=== PATIENT | male | born 1945 | race Caucasian/White ===

== ENCOUNTER 2020-09-01 14:58 | Emergency (ER) | payer MEDICARE ==
[~2020-09-01] VITALS: Ht 172.7 cm; Wt 90.0 kg
[2020-09-01] MEDS ORDERED: IPRATRPIUM/ALBUTEROL 0.5/2.5MG 3 ML NEBU. ONE (15:14)
[2020-09-01] MEDS ORDERED: methylPREDNISolone SOD SUCC PF 125 MG/2 ML VIAL. IV ONE (15:15)
[2020-09-01] MEDS ORDERED: ADENOSINE 6 MG/2 ML VIAL IV ONE ×2 (15:15→15:30)
[2020-09-01] MEDS ORDERED: IPRATROPIUM BROMIDE 0.5 MG/2.5 ML NEBU. NEB ONE (15:15)
[2020-09-01 15:27] LABS: BASO # 0.1 x10^3/uL (0.0-0.2); BASO % 1 % (0-3); EOS # 0.1 x10^3/uL (0.0-0.7); EOS % 1 % (0-3); HEMATOCRIT 39.9 % (39.0-53.0); HEMOGLOBIN 13.3 g/dL (13.0-17.5); LYMPH # 2.9 x10^3/uL (1.0-4.8); LYMPH % 13 % (24-48); MEAN CORPUSCULAR HEMOGLOBIN 30 pg (25-35); MEAN CORPUSCULAR HGB CONC 33 g/dL (31-37); MEAN CORPUSCULAR VOLUME 91 fL (79-100); MONO # 2.9 x10^3/uL (0.0-1.1); MONO % 13 % (0-9); NEUT # 15.6 x10^3uL (1.8-7.7); NEUT % 72 % (31-73); PLATELET COUNT 455 x10^3/uL (140-400); RED CELL DISTRIBUTION WIDTH 13.1 % (11.5-14.5); WHITE BLOOD COUNT 21.5 x10^3/uL (4.0-11.0)
--- NOTE | 2020-09-01 15:28 | PHYS DOC ---
Past History Past Medical History: Other (Subarachnoid hemorrhage, neurosyphilis) Past Surgical History: Other (BILATERAL ENDARTERECTOMY) Adult General Chief Complaint Chief Complaint: ALTERED MENTAL STATUS HPI HPI Patient is a 75-year-old male who presents via EMS for shortness of breath. Patient with prior history of smoking was seen by his primary care physician early last week and diagnosed with pneumonia after undergoing chest x-ray analysis. He has been at home utilizing inhaler treatments, steroids and Levaquin. Per who called ahead prior to ER arrival, patient was at home and had witnessed seizure-like activity that lasted less than 3 minutes in duration. Patient had generalized tonic-clonic shaking and urinated himself, he was unresponsive throughout total duration of episode. On arrival to scene by EMS, patient was postictal and hypoxic with O2 saturation 68% on room air. Patient typically does not wear oxygen at home, has history of smoking and was recently prescribed an inhaler, denies any history of COPD, no prior intubations or hospitalizations for respiratory issues. Nonetheless, IV access was obtained and patient was urgently transported to our facility for evaluation. Limited history obtainable from patient due to acute respiratory distress on arrival, denies any fever, unable to recall recent events and history of present illness, cannot recall that he is being treated for pneumonia currently Review of Systems Review of Systems Fourteen body systems of review of systems have been reviewed. See HPI for pertinent positives and negative responses, other quintanilla all other systems are negative, non-pertinent or non-contributory Current Medications Current Medications Current Medications Medications (Trade) Dose Ordered Sig/Sanchez Start Time Stop Time Status Last Admin Dose Admin Adenosine (Adenocard) 6 mg STK-MED ONCE 09/01/20 15:15 09/01/20 15:15 DC Albuterol/ Ipratropium (Duoneb) 3 ml STK-MED ONCE 09/01/20 15:14 09/01/20 15:14 DC Ipratropium [place] (Atrovent) 0.5 mg 1X ONCE 09/01/20 15:15 09/01/20 15:16 UNV Methylprednisolone Sodium Succinate (SOLU-Medrol 125MG VIAL) 125 mg 1X ONCE 09/01/20 15:15 09/01/20 15:16 UNV Allergies Allergies Allergies Coded Allergies Type Severity Reaction Last Updated Verified No Known Drug Allergies 09/01/20 No Physical Exam Physical Exam Constitutional: Well developed, well nourished, in moderate respiratory distress on arrival, toxic appearing, mouth breathing and gasping for air speaking in few word sentences only HENT: Normocephalic, atraumatic, bilateral external ears normal, oropharynx dry with poor dentition, no tongue lacerations and/or bite patiño, no oral exudates, nose normal. Eyes: PERRLA, EOMI, conjunctiva normal, no discharge. Neck: Normal range of motion, no tenderness, supple, no stridor. Cardiovascular: Tachycardic, sinus rhythm, no murmurs rubs or gallops Lungs & Thorax: Bilateral crackles and rhonchi, left greater than right, in respiratory distress, nonrebreather in place with oxygen saturations in the low 90s, accessory muscle usage noted in neck and abdomen Abdomen: Bowel sounds normal, soft and protuberant, no tenderness, no masses, no pulsatile masses. Nonsurgical abdomen, no peritoneal signs. Urinary incontinence present Skin: Cool and dry, no erythema, no rash. Back: No tenderness, no CVA tenderness. Extremities: No tenderness, no cyanosis, no clubbing, ROM intact, no edema. Neurologic: Alert and oriented X 3, cranial nerves II through XII intact, normal motor & sensory function, no focal deficits noted. Psychologic: Anxious mood and affect Current Patient Data Vital Signs Vital Signs Date Time Temp Pulse Resp B/P (MAP) Pulse Ox O2 Delivery O2 Flow Rate FiO2 09/01/20 15:10 98.2 172 26 135/63 (87) 92 NonRebreather Mask 15.0 Lab Results Laboratory Tests Test 09/01/20 15:05 09/01/20 15:10 09/01/20 15:15 White Blood Count 21.5 x10^3/uL Red Blood Count 4.40 x10^6/uL Hemoglobin 13.3 g/dL Hematocrit 39.9 % Mean Corpuscular Volume 91 fL Mean Corpuscular Hemoglobin 30 pg Mean Corpuscular Hemoglobin Concent 33 g/dL Red Cell Distribution Width 13.1 % Platelet Count 455 x10^3/uL Neutrophils (%) (Auto) 72 % Lymphocytes (%) (Auto) 13 % Monocytes (%) (Auto) 13 % Eosinophils (%) (Auto) 1 % Basophils (%) (Auto) 1 % Neutrophils # (Auto) 15.6 x10^3uL Lymphocytes # (Auto) 2.9 x10^3/uL Monocytes # (Auto) 2.9 x10^3/uL Eosinophils # (Auto) 0.1 x10^3/uL Basophils # (Auto) 0.1 x10^3/uL Segmented Neutrophils % 73 % Band Neutrophils % 3 % Lymphocytes % 12 % Monocytes % 11 % Eosinophils % 1 % Platelet Estimate Adequate Sodium Level 129 mmol/L Potassium Level 3.9 mmol/L Chloride Level 95 mmol/L Carbon Dioxide Level 19 mmol/L Anion Gap 15 Blood Urea Nitrogen 19 mg/dL Creatinine 1.6 mg/dL Estimated GFR (Cockcroft-Gault) 42.3 BUN/Creatinine Ratio 12 Glucose Level 174 mg/dL Lactic Acid Level 5.8 mmol/L Calcium Level 8.7 mg/dL Total Bilirubin 0.7 mg/dL Aspartate Amino Transf (AST/SGOT) 34 U/L Alanine Aminotransferase (ALT/SGPT) 45 U/L Alkaline Phosphatase 99 U/L Creatine Kinase 101 U/L Troponin I Quantitative 0.038 ng/mL LV-Ccq-G-Type Natriuretic Peptide 3066 pg/mL Total Protein 6.9 g/dL Albumin 2.6 g/dL Albumin/Globulin Ratio 0.6 Glucose (Fingerstick) 165 mg/dL Blood Gas pH 7.37 Blood Gas PCO2 29 mmHg Blood Gas PO2 75 mmHg Blood Gas HCO3 17 mmol/L Arterial Bld O2 Saturation (Calc) 95 % FiO2 100 % Current Medications Medications (Trade) Dose Ordered Sig/Sanchez Route PRN Reason Start Time Stop Time Status Last Admin Dose Admin Ipratropium [place] (Atrovent) 0.5 mg 1X ONCE NEB 09/01/20 15:15 09/01/20 15:41 DC Methylprednisolone Sodium Succinate (SOLU-Medrol 125MG VIAL) 125 mg 1X ONCE IV 09/01/20 15:15 09/01/20 16:28 DC Albuterol/ Ipratropium (Duoneb) 3 ml STK-MED ONCE .ROUTE 09/01/20 15:14 09/01/20 15:14 DC Adenosine (Adenocard) 6 mg STK-MED ONCE IV 09/01/20 15:15 09/01/20 15:15 DC Adenosine (Adenocard) 6 mg 1X ONCE IV 09/01/20 15:30 09/01/20 15:41 DC 09/01/20 15:22 Ondansetron HCl (Zofran) 4 mg 1X ONCE IVP 09/01/20 15:30 09/01/20 15:41 DC 09/01/20 15:24 Sodium Chloride 500 ml @ 0 mls/hr 1X ONCE IV 09/01/20 15:45 09/01/20 15:48 DC 09/01/20 15:18 Levofloxacin/ Dextrose 150 ml @ 100 mls/hr 1X ONCE IV 09/01/20 15:45 09/01/20 17:14 DC 09/01/20 16:05 Albuterol Sulfate (Ventolin Hfa Inhaler) 60 puff STK-MED ONCE .ROUTE 09/01/20 16:00 09/01/20 16:01 DC Iohexol (Omnipaque 350 Mg/ml) 100 ml 1X ONCE IV 09/01/20 16:15 09/01/20 16:31 DC 09/01/20 16:41 Dexamethasone Sodium Phosphate (Decadron) 6 mg 1X ONCE IV 09/01/20 16:30 09/01/20 16:31 DC 09/01/20 17:15 EKG EKG Initial EKG ordered and interpreted by myself at 1507 hrs. as sinus rhythm at 163 bpm, narrow QRS at 100, unremarkable intervals, no acute ischemic findings, no STEMI Repeat EKG ordered and interpreted by myself after chemical cardioversion at 1527 hrs. as sinus rhythm at 109 bpm, unremarkable intervals, no axis deviation, no acute ischemic findings, no STEMI. Significant improvement in SVT after 6 mg adenosine Radiology/Procedures Radiology/Procedures PROCEDURE: PORTABLE CHEST 1V XR CHEST 1V History: Reason: SHOB Hx: Pneumonia / Spl. Instructions: / History: Comparison: August 29, 2020 Findings: Increased multifocal ill-defined opacities and consolidations, left greater than right. Possible small left pleural effusion. Unchanged heart size. No pneumothorax. Impression: 1. Increased multifocal ill-defined opacities and consolidations, left greater than right. Findings may represent pneumonia including viral pneumonia or pulmonary edema. Electronically signed by: Jann Palacios DO (09/01/2020 3:33 PM) [facility] //////////////////////////////// PROCEDURE: CT HEAD WO CONTRAST CT HEAD/BRAIN WO History: Reason: SEIZURE, HX NEUROSYPHILIS SAH / Spl. Instructions: / History: Comparison: None. Technique: Noncontrast CT imaging was performed of the head. Exposure: One or more of the following individualized dose reduction techniques were utilized for this examination: 1. Automated exposure control 2. Adjustment of the mA and/or kV according to patient size 3. Use of iterative reconstruction technique. Chronic left basal ganglia lacunar infarcts. Findings: No intracranial hemorrhage. No mass effect. No hydrocephalus. Left frontal parietal cortical and subcortical encephalomalacia related to prior insult. Mild brain parenchymal volume loss. Imaged orbits are unremarkable. Imaged paranasal sinuses and mastoid air cells are clear. No acute calvarial fracture. Impression: 1. No acute intracranial abnormality. 2. Left frontal and parietal encephalomalacia related to prior insult. 3. Chronic appearing left basal ganglia lacunar infarcts. Electronically signed by: Jann Palacios DO (09/01/2020 5:14 PM) [facility] ///////////////////////////////////////////////////////// PROCEDURE: CT ANGIOGRAPHY CHEST CTA CHEST History: Shortness of breath. Suspected Covid Technique: CT of the chest was performed with intravenous contrast. PE protocol. Maximum intensity projection coronal and sagittal reconstructions were performed. Exposure: One or more of the following individualized dose reduction techniques were utilized for this examination: 1. Automated exposure control 2. Adjustment of the mA and/or kV according to patient size 3. Use of iterative reconstruction technique. Comparison: None Findings: Chest: No pulmonary embolism. No aortic aneurysm or dissection. Mild atherosclerotic plaque within the aorta. Coronary artery calcifications. Mildly enlarged mediastinal and hilar lymph nodes. Diffuse septal thickening. Diffuse alveolar opacities bilaterally. Tiny left pleural effusion. No pneumothorax. Upper abdomen: The imaged upper abdomen is unremarkable. Bones: No pathologic osseous lesions. Impression: 1. No pulmonary embolism. 2. Diffuse septal thickening and alveolar opacities, may represent pulmonary edema or infection including viral pneumonia. Recommend short-term follow-up after treatment. 3. Mild mediastinal and hilar lymphadenopathy, likely reactive. Electronically signed by: Jann Palacios DO (09/01/2020 5:25 PM) [facility] Heart Score C/O Chest Pain: No HEART Score for Chest Pain: HEART Score for Chest Pain Response (Comments) Value History Moderately Suspicious 1 ECG Nonspecific Repolarizatio 1 Age > 65 2 Risk Factors >3 Risk Factors or Hx CAD 2 Troponin < Normal Limit 0 Total 6 Risk Factors: Risk Factors: DM, Current or recent (<one month) smoker, HTN, HLP, family history of CAD, obesity. Risk Scores: Risk Factors: DM, Current or recent (<one month) smoker, HTN, HLP, family history of CAD, obesity. Course & Med Decision Making Course & Med Decision Making Patient presenting to ER hypoxic on 15 L nonrebreather, airway patent speaking in few word sentences only, in acute respiratory distress, vitals obtained and patient in upper 80s with sustained SVT per monitor and tachypnea X2 peripheral IVs obtained. EKG obtained confirming SVT. Vagal maneuvers attempted without relief of symptoms, decision was made to administer 6 mg adenosine with significant improvement in patient's heart rate and subsequent tachypnea and hypoxia Repeat EKG performed showing improved sinus tachycardia with new rate ranging from 90s to 110s Comprehensive ER work-up obtained concerning for bilateral pneumonia which is likely cause of patient's presenting symptoms. There is high concern for Covid, patient tested and now a PUI. Continued IV Levaquin and started 6 mg dexamethasone Patient likely suffered from seizure given urinary incontinence. Also suffering from SVT, suspect underlying sepsis as cause of this? This resolved to adequate ranges after chemical cardioversion Patient mentation, color, and ventilation improved with ER intervention; however, patient still requiring 15 L oxygen via high flow nasal cannula to keep oxygen saturations greater than 90%. He will need admission Discussed case with , she states patient sees Dr. Wilks, induction furnace operator at [facility] system and prefers transfer to them if possible. They were contacted and case was discussed at length with Dr. Alexis. She updated me on patient's complicated medical history that includes prior subarachnoid hemorrhage and neurosyphilis. Ultimately, she agreed need for transfer and accepted patient under her care I updated both patient and spouse on need for hospital transfer via EMS to [facility] for admission and continued inpatient medical management, they were amenable to plan as stated. All questions and concerns addressed prior to ER departure via EMS in guarded condition Patient remained nauseous throughout visit after a total of 8 mg Zofran. Decision was made to use topical peppermint inferior QT prolongation from Zofran and IV Levaquin, this improved patient's symptoms. Decision also made to administer 90 mg Lovenox for PE prophylaxis and high risk patient Critical Care Time This patient required critical care. Due to the fact that the patient required a significant amount of one on one physician - patient contact time, ordering and review of studies, arranging urgent treatment with development of a management plan, evaluation of patients response to treatment with frequent reassessments, and discussions with other providers this patient required 65 minutes of cr itical care time. Critical care time was indicated due to the inherent instability and/or potential for instability in this patient. The critical care time that is allocated to this patient is above and beyond any time spent on any other billable procedures performed on this patient. Dragon Disclaimer Dragon Disclaimer This electronic medical record was generated, in whole or in part, using a voice recognition dictation system. Cardioversion Indication: Narrow complex tachycardia/SVT Consent: Verbal consent obtained. Medical necessity given presenting condition. unavailable for initial 30 minutes of patient arrival Pre-Medication: None Procedure: The patient was placed in the supine position and the chest area was exposed. The cardioversion pads were applied in the standard manner and configuration. A total of 6 mg adenosine was pushed with rapid flush per typical protocol Attempt #1: Patient adequately responded to chemical conversion on first attempt with 6 mg adenosine The patient tolerated the procedure well without any observed and/or reported complications. Repeat EKG obtained showing significant improvement in narrow complex tachycardia/SVT Departure Departure: Impression: Primary Impression: Acute respiratory failure with hypoxia Additional Impressions: Sepsis due to pneumonia Person under investigation for COVID-19 SVT (supraventricular tachycardia) Disposition: 01 DC HOME SELF CARE/HOMELESS ([facility]) Admitting Physician: Other (Dr. Alexis) Condition: GUARDED Referrals: PCP,UNKNOWN (PCP) Problem Qualifiers JASS PIERSON DO Sep 01, 2020 15:28
[2020-09-01] MEDS ORDERED: ONDANSETRON PF 4 MG/2 ML VIAL. IVP ONE (15:30)
[2020-09-01 15:32] LABS: BGAS PH 7.37 (7.35-7.46)
--- NOTE | 2020-09-01 15:36 | RAD ---
XR CHEST 1V History: Reason: SHOB Hx: Pneumonia / Spl. Instructions: / History: Comparison: August 29, 2020 Findings: Increased multifocal ill-defined opacities and consolidations, left greater than right. Possible smal l left pleural effusion. Unchanged heart size. No pneumothorax. Impression: 1. Increased multifocal ill-defined opacities and consolidations, left greater than right. Findings may represent pneumonia including viral pneumonia or pulmonary edema. Electronically signed by: Jann Palacios DO (09/01/2020 3:33 PM) [facility]
[2020-09-01 15:38] LABS: CALCIUM 8.7 mg/dL (8.5-10.1); CREATININE 1.6 mg/dL (0.7-1.3); GFR 42.3; POTASSIUM 3.9 mmol/L (3.5-5.1)
[2020-09-01] MEDS ORDERED: IV NORMAL SALINE 500ML 500 ML IV ONE (15:45)
[2020-09-01 15:48] LABS: ALBUMIN 2.6 g/dL (3.4-5.0); ALBUMIN/GLOBULIN RATIO 0.6 (1.0-1.7); TOTAL BILIRUBIN 0.7 mg/dL (0.2-1.0); TOTAL PROTEIN 6.9 g/dL (6.4-8.2)
[2020-09-01 15:52] LABS: % BANDS 3 % (0-9); % EOS 1 % (0-5); % LYMPHS 12 % (24-48); % MONOS 11 % (0-10); % SEGS 73 % (35-66)
[2020-09-01 15:53] LABS: PLT ESTIMATE ADEQUATE (ADEQUATE)
[2020-09-01] MEDS ORDERED: ALBUTEROL SULFATE 8GM INHALER. ONE (16:00)
--- NOTE | 2020-09-01 16:14 | EKG ---
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
[2020-09-01] MEDS ORDERED: IOHEXOL 350 MG/ML 100 ML VIAL. IV ONE (16:15)
--- NOTE | 2020-09-01 16:15 | EKG ---
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
[2020-09-01] MEDS ORDERED: DEXAMETHASONE SOD PHOS 10 MG/ML VIAL. IV ONE (16:30)
--- NOTE | 2020-09-01 17:17 | RAD ---
CT HEAD/BRAIN WO History: Reason: SEIZURE, HX NEUROSYPHILIS SAH / Spl. Instructions: / History: Comparison: None. Technique: Noncontrast CT imaging was performed of the head. Exposure: One or more of the following individualized dose reduction techniques were utilized for thi s examination: 1. Automated exposure control 2. Adjustment of the mA and/or kV according to patient size 3. Use of iterative reconstruction technique. Chronic left basal ganglia lacunar infarcts. Findings: No intracranial hemorrhage. No mass effect. No hydrocephalus. Left frontal parietal cortical and subcortical encephalomalacia related to prior insult. Mild brain p arenchymal volume loss. Imaged orbits are unremarkable. Imaged paranasal sinuses and mastoid air cells are clear. No acute ca lvarial fracture. Impression: 1. No acute intracranial abnormality. 2. Left frontal and parietal encephalomalacia related to prior insult. 3. Chronic appearing left basal ganglia lacunar infarcts. Electronically signed by: Jann Palacios DO (09/01/2020 5:14 PM) [facility]
--- NOTE | 2020-09-01 17:27 | RAD ---
CTA CHEST History: Shortness of breath. Suspected Covid Technique: CT of the chest was performed with intravenous contrast. PE protocol. Maximum intensity pr ojection coronal and sagittal reconstructions were performed. Exposure: One or more of the following individualized dose reduction techniques were utilized for thi s examination: 1. Automated exposure control 2. Adjustment of the mA and/or kV according to patient size 3. Use of iterative reconstruction technique. Comparison: None Findings: Chest: No pulmonary embolism. No aortic aneurysm or dissection. Mild atherosclerotic plaque within th e aorta. Coronary artery calcifications. Mildly enlarged mediastinal and hilar lymph nodes. Diffuse septal thickening. Diffuse alveolar opacities bilaterally. Tiny left pleural effusion. No pne umothorax. Upper abdomen: The imaged upper abdomen is unremarkable. Bones: No pathologic osseous lesions. Impression: 1. No pulmonary embolism. 2. Diffuse septal thickening and alveolar opacities, may represent pulmonary edema or infection incl uding viral pneumonia. Recommend short-term follow-up after treatment. 3. Mild mediastinal and hilar lymphadenopathy, likely reactive. Electronically signed by: Jann Palacios DO (09/01/2020 5:25 PM) [facility]
[2020-09-01] MEDS ORDERED: ENOXAPARIN ** NOTE DOSE ** SYRINGE SQ ONE (17:30)
[2020-09-01 18:40] VITALS: BP 118/73
== END 2020-09-01 19:00 | disposition home or self-care (01) ==
LOC: ER 14:58
DX: J96.01 Acute respiratory failure with hypoxia (principal); A41.9 Sepsis, unspecified organism; J18.9 Pneumonia, unspecified organism; I47.1 Supraventricular tachycardia; Z20.822 Contact with and (suspected) exposure to COVID-19
CPT/HCPCS: 36415; 70450; 71045; 71275; 80053; 82550; 82803; 82947; 83605; 83880; 84484; 85007; 85025; 87040; 93005; 94640; 96361; 96365; 96372; 96375; 99291; C9803; J0153; J1100; J1650; J1956; J2405; J7040; Q9967; U0003